=== PATIENT | female | born 1940 | race Caucasian/White ===

== ENCOUNTER 2016-07-15 06:15 | Inpatient (IN) ==
[2016-07-15] MEDS ORDERED: Heparin 1,000 UNITS/500 mL NS 500 ML ONE ×2 (06:45→06:49)
[2016-07-15] MEDS ORDERED: Lidocaine 1% 20 ML MDV ONE (06:48)
[2016-07-15] MEDS ORDERED: *HR* Succinylcholine 200 MG/10 ML VIAL IVP ONE (06:59)
[2016-07-15] MEDS ORDERED: Lidocaine -MPF 2% 2 ML VIAL ONE ×2 (06:59→07:53)
[2016-07-15] MEDS ORDERED: Lidocaine -MPF 4% 5 ML AMPUL ONE ×2 (06:59→11:05)
[2016-07-15] MEDS ORDERED: *HR* Propofol 200 MG/20 ML VIAL IVP ONE (07:00)
[2016-07-15] MEDS ORDERED: *HR* Midazolam HCl 2 MG/2 ML VIAL ONE (07:00)
[2016-07-15] MEDS ORDERED: *HR* FentaNYL (PF) 100 MCG/2 ML VIAL ONE (07:00)
[2016-07-15] MEDS ORDERED: *HR* Remifentanil 2 MG VIAL IVP ONE ×2 (07:04→10:42)
--- NOTE | 2016-07-15 07:06 | Anesthesia Evaluation PreOp ---
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: Seizures (last seizure 4 months ago, not being medically treated), CVA (left residual weakness) Other Medical History: Diabetes Type II, GERD Anesthesia History: No Prior Anesthetic Complications, Past Anesthesia Alcohol Use: none Drug use: none Medications and Allergies Aspirin [Lo-Dose Aspirin EC] 81 mg PO DAILY 02/15/16 [History] Donepezil [Aricept] 5 mg PO HS 02/15/16 [History] Gabapentin [Neurontin] 300 mg PO TID 02/15/16 [History] Insulin DETEMIR [Levemir Flextouch] 35 unit SQ BID 02/15/16 [History] Metoprolol [Lopressor] 50 mg PO BID 02/15/16 [History] Temazepam [Restoril] 15 mg PO HS 02/15/16 [History] Lisinopril-HCTZ 20-12.5 [Prinzide 20-12.5] 1 each PO BID 07/04/16 [History] Nitroglycerin [Nitrostat] 0.4 mg SL DAILY PRN 07/04/16 [History] Allergies Penicillins [PCN] Allergy (Verified 02/15/16 14:12) Hives Sulfa (Sulfonamide Antibiotics) Allergy (Verified 02/15/16 14:12) Hives Bucvpfg-Lmp-Yhr Reductase Inhibitor [Statins] Adverse Reaction (Verified 10:34) Cramping of the Muscles pain meds Allergy (Uncoded 02/15/16 14:12) Hives - Meds/Allergy Pre-op Review Medications Reviewed: Yes Allergies Reviewed: Yes Beta Blockers on Current Med List: Yes If Beta Blockers taken, Date/Time (Last Dose taken): 07/14/2016 at 2100 Anesthesia Results - Labs Laboratory Tests 07/01/16 07/01/16 07/01/16 16:36 16:36 16:36 WBC 7.3 Hgb 10.2 L Hct 34.7 L Plt Count 283 PT 11.1 INR 1.0 APTT 27.3 Sodium 135 L Potassium 3.9 BUN 17 Creatinine 0.93 - Imaging EKG: report reviewed (02/15/2016 SR, 1st degree AV block, possible inferior infarct) Additional studies: 07/10/2016 LVEF >70% perfusion imaging was negative for ischemia or infarct 05/21/2014 Echo Impressions: LVEF 65-70%. Normal left ventricular structure and function. Mild left ventricular diastolic dysfunction with elevated filling pressures. Moderately enlarged left atrial size. Normal right atrial size. RV not well visualized but grossly demonstrates normal function. Mild tricuspid regurgitation. Moderate MAC. RVSP 22 mmHg; no pulmonary hypertension. IVC is normal in size. No evidence for interatrial shunting with saline contrast injection. Anesthesia Exam O2 Sat Height 1.45 m Height 1.45 m Weight 73.936 kg Weight 73.936 kg O2 Sat by Pulse Oximetry 95 Vital Signs Temp Pulse Resp BP Pulse Ox 97.8 F 53 18 130/64 95 07/15/16 06:46 07/15/16 06:46 07/15/16 06:46 07/15/16 06:46 07/15/16 06:46 Blood Glucose* 135 Height: 4'9'' Weight: 163 lbs NPO (# of Hours): 8 Pain Scale: 0 Pain Scale Used: Numeric (1 - 10) - HEENT Pupil (Motor): EOMI Mallampati: II Teeth: Edentulous Denture Type: Upper: Complete, Lower: Complete Oral Opening: Greater than 3 - BOWLING [employer] DESK CLERK LOC: Oriented [employer] DESK CLERK Motor: Normal RUE, Normal RLE, Normal Face, Deficit LUE, Deficit LLE [employer] DESK [employer]ERK Sensory: Normal: RUE, RLE, Face, Deficit: LUE, LLE - Cardiac Rhythm: Regular Murmur: None - Pulmonary Breath Sounds: bilateral Clear Respiratory Effort: Symmetrical Anesthesia Assess/Plan ASA Score: 4 Modified Nawaf Scale for Level of Consciousness: Cooperative, oriented, and tranquil Anesthetic Plan: General, Precautions (Patient understands that she is at increased risk for perioperative complications including myocardial infarct, arrhythmias, CVA, post op vent support/ICU stay, and . Patient wishes to proceed.) Monitoring Plan: Standard Monitors, A-Line Recovery Plan: PACU
[2016-07-15] MEDS ORDERED: EPHEDrine 50 MG/ML VIAL ONE (07:15)
[2016-07-15] MEDS ORDERED: CeFAZolin Pre 2,000 MG/100 ML 2,000 MG/100 ML BAG IVPB ONE (07:21)
--- NOTE | 2016-07-15 07:22 | History & Physical Report ---
Date of Encounter: 07/15/16 Time of Encounter: 07:22 24 Hour HP Update - Instructions Instructions: If the History and Physical is less than 30 days old and was completed prior to A.M. admission and or procedure and has NOT been updated on calendar day of procedure please complete this update prior to performing procedure. - Update Patient reports changes in Medical Condition: No Changes in assessment/condition: No Changes in Medication: No Preop tests/diagnostics Reviewed: Yes Surgery Remains Indicated: Yes Consent for Planned Operative Procedure(s) Verified: Yes - Pre-Operative Checklist Preoperative Checklist Indicated: Yes Prophylactic Antibiotic Ordered: Yes Home Medications Include Beta Moses: Yes Beta Moses Taken Today (Day of Surgery): Yes Beta Moses Taken Yesterday (Day Prior to Surgery): Yes Is VTE Prophylaxis Indicated?: Yes
[2016-07-15] MEDS ORDERED: Ringers Solution, Lactated 1,000 ML IVC SCH ×2 (07:30→09:00)
[2016-07-15] MEDS ORDERED: NiCARdipine 2.5 MG/10 ML Syringe IVPB ONE (08:30)
[2016-07-15] MEDS ORDERED: Ondansetron 4 MG/2 ML VIAL ONE (08:34)
[2016-07-15] MEDS ORDERED: *HR* Heparin 5,000 UNIT/ML VIAL ONE ×2 (08:37→10:56)
[2016-07-15] MEDS ORDERED: *HR* Labetalol 100 MG/20 ML MDV IVP PRN (08:50)
[2016-07-15] MEDS ORDERED: *HR* HYDROmorphone (PF) 1 MG/ML SYRINGE IVP PRN (08:50)
[2016-07-15] MEDS ORDERED: Ondansetron 4 MG/2 ML VIAL IVP ONE (08:50)
[2016-07-15] MEDS ORDERED: *HR* Meperidine 25 MG/ML SYRINGE IVP PRN (08:50)
[2016-07-15] MEDS ORDERED: Naloxone 0.4 MG/ML INJ IVP PRN ×3 (08:50→14:42)
[2016-07-15] MEDS ORDERED: Albuterol 2.5 MG/3 ML NEBULIZER IH ONE (08:50)
--- NOTE | 2016-07-15 08:50 | Anesthesia Procedures ---
Date of Encounter: 07/15/16 Time of Encounter: 08:49 Procedures: Anesthesia - Arterial Line Consent obtained: written consent Time out performed: Yes Supplemental Oxygen via Nasal Cannula (L/min): 4 Local Anesthetic: Lidocaine 1% Amount of Anesthetic used (mls): 0.3 Size (Gauge): 20 Length (inches): 1 3/4 Technique Used: sterile prep, direct puncture technique Post-Procedure: line taped into place, dry sterile dressing placed Patient tolerated procedure: well, no complications Complications: none Site: Radial R
[2016-07-15] MEDS ORDERED: *HR* Morphine 2 MG/ML SYRINGE IVP PRN (11:54)
[2016-07-15] MEDS ORDERED: Acetaminophen 325 MG TABLET PO PRN (11:54)
[2016-07-15] MEDS ORDERED: *HR* HYDROcodone/Acet 5/325 mg TABLET PO PRN (11:54)
--- NOTE | 2016-07-15 12:03 | Operative Note ---
Date of procedure: 07/15/16 Pre-op diagnosis: Recurrent right carotid artery stenosis Post-op diagnosis: same Procedure: Redo right carotid endarterectomy with bovine pericardial patch angioplasty and 8 Maltese shunt. Complications: None Anesthesia: ALONDRA Surgeon: Hugo Martinez Estimated blood loss (cc): 150 Condition: stable Disposition: PACU Procedure in Detail: History Isabel Stallworth is a 75-year-old white female with known carotid artery disease. She is status post a left carotid artery endarterectomy many years ago at an outside hospital. She does undergo a right carotid endarterectomy here approximately 2-1/2 years ago. On follow-up scanning she was found have a critical stenosis with elevated velocities. A repeat gram was obtained which showed a high-grade stenosis and an hourglass type configuration in the area of the previous patch angioplasty suggesting severe intimal hyperplasia. The patient FOR surgical correction of this lesion. Procedure After informed consent was obtained the patient was taken to the operating room. General endotracheal anesthesia was established and an arterial line was placed. The right neck was then sterilely prepped and draped. A timeout protocol was observed. An incision was made over the previous surgical scar. Dissection was then carried down to the carotid sheath. The patient had very dense scarring around the carotid artery leading to a very tedious and meticulous dissection. Ultimately the vessel and the bifurcation of the carotid system was isolated and controlled with vessel loops. The hypoglossal nerve and vagus nerve were identified and preserved. 5000 units of heparin were administered intravenously. After 3 minutes later the vessels were clamped with the internal carotid artery clamped first. Using an 11 blade knife and Dawson scissors the old patch was opened. An 8 Maltese shunt was then inserted atraumatically. Patency of the shunt was confirmed by the use of intraoperative Doppler. Inspecting the vessel the high-grade stenosis was identified and indeed did appear to be intimal hyperplasia. Therefore an endarterectomy was performed of the carotid vessel to remove this intimal hyperplasia. The previous JOSEPH Shield Dacron patch was then excised in total. A bovine pericardial patch was selected and this was sewn into position using 2 6-0 Prolene sutures. Leaving a small space open on the suture line the shunt was clamped divided and removed. The final few sutures were placed. The internal was allowed to backbleed and was reclamped. The external and common were opened and finally the internal was reopened. The patient had no hemodynamic distress with this maneuver. Excellent pulsations and Doppler signals were identified throughout the carotid system. Hemostasis was achieved. A superficial cervical block was half percent Marcaine was performed. Copious irrigation with antibiotic containing solution was performed as well. Wound was then closed in layers using absorbable suture. No drains were placed. There were no intraoperative complications. The patient tolerated the procedure well. The patient awoke from anesthesia without difficulty and was neurologically intact. She was extubated in the operating room and taken to the recovery room in stable condition.
--- NOTE | 2016-07-15 12:45 | Anesthesia Evaluation Post Op ---
Date of Encounter: 07/15/16 Time of Encounter: 12:30 - Vital Signs Vital Signs: Vital Signs/O2 Sat, Most Current Temp Pulse Resp BP Pulse Ox 97.7 F 89 16 131/53 95 07/15/16 12:29 07/15/16 12:29 07/15/16 12:29 07/15/16 12:29 07/15/16 12:29 - Lungs Lungs: Clear Ascult./Percussion - Airway Airway: Non-obstructed - Cardiovascular Regular Rate - Mental Status Mental Status: Asleep with brisk response to light stimulation - Pain Pain Scale: 0 Pain Scale used: Numeric (1 - 10) - Nausea Vomiting Nausea Vomiting: Not Present - Hydration Hydration: NPO, Miner catheter - Discharge PostOp Status: Transfer Patient to floor
[2016-07-15] MEDS ORDERED: Nitroglycerin 0.4 MG TAB.SUBL SL PRN (13:44)
[2016-07-15] MEDS ORDERED: Ondansetron 4 MG/2 ML VIAL IVP PRN (14:42)
[2016-07-15] MEDS: ceFAZolin 2,000 MG in D5% in Water 100 ML IVPB SCH ×2 (15:32→23:36)
[2016-07-15] MEDS: Gabapentin 300 MG CAPSULE PO SCH ×2 (15:32→21:02)
[2016-07-15] MEDS ORDERED: ceFAZolin 2,000 MG in D5% in Water 100 ML IVPB SCH (16:00)
[2016-07-15] MEDS ORDERED: D5% in Water 1,000 ML IV PRN (17:25)
[2016-07-15] MEDS ORDERED: Dextrose Gel 15 GM PO PRN ×2 (17:25)
[2016-07-15] MEDS ORDERED: *HR* Dextrose 50 % in Water (Syg) 50 ML SYRINGE IVP PRN (17:25)
[2016-07-15] MEDS: Ringers Solution, Lactated 1,000 ML IVC SCH (17:37)
[2016-07-15] MEDS: Insulin LISPRO 300 UNITS/3 ML VIAL SQ SCH (17:37)
[2016-07-15] MEDS: INSULIN DEGLUDEC 35 UNIT SQ SCH (20:57)
[2016-07-15] MEDS ORDERED: Insulin LISPRO 300 UNITS/3 ML VIAL SQ SCH (21:00)
[2016-07-15] MEDS ORDERED: Aspirin Enteric Coated 81 MG Tablet PO SCH (21:00)
[2016-07-15] MEDS ORDERED: Temazepam 15 MG CAPSULE PO SCH (21:00)
[2016-07-15] MEDS: Lisinopril-HCTZ 20-12.5mg TABLET PO SCH (21:02)
[2016-07-16 04:33] LABS: Basophils % 0.4 %; Eosinophils # 0.1 K/mcL (0.0-0.6); Hematocrit 23.1 % (35.3-44.9); Hemoglobin 7.2 g/dL (11.5-15.4); Immature Granulocytes % 0.4 % (0-4); Lymphocytes # 0.9 K/mcL (0.6-4.6); Lymphocytes % 15.6 %; Mean Corpuscular HGB Conc 31.2 g/dL (31.6-35.5); Mean Corpuscular Hemoglobin 23.7 pg (28.0-33.3); Monocytes # 0.5 K/mcL (0.0-1.3); Monocytes % 8.5 %; Neutrophils # 4.1 K/mcL (1.6-8.9); Platelet Count 202 K/mcL (140-400); Red Blood Count 3.04 M/mcL (3.82-4.97); Red Cell Distribution Width 15.3 % (11.5-14.5); Segmented Neutrophils % 73.1 %
[2016-07-16 04:43] LABS: BUN/Creatinine Ratio 15 (6-26); Blood Urea Nitrogen 11 mg/dL (7-20); Carbon Dioxide 24 mEq/L (19-29); Chloride 98 mEq/L (98-109); Glucose 126 mg/dL (70-99); Osmolality,Calculated 275 (280-300); Potassium 3.5 mEq/L (3.5-4.5); Sodium 132 mEq/L (136-145); eGFR For African Americans > 60 (> 60); eGFR For Non-African Americans > 60 (> 60)
[2016-07-16] MEDS: Ringers Solution, Lactated 1,000 ML IVC SCH (06:47)
[2016-07-16] MEDS: Insulin LISPRO 300 UNITS/3 ML VIAL SQ SCH ×4 (08:28→17:09)
[2016-07-16] MEDS: ceFAZolin 2,000 MG in D5% in Water 100 ML IVPB SCH (08:58)
[2016-07-16] MEDS: Lisinopril-HCTZ 20-12.5mg TABLET PO SCH (08:59)
[2016-07-16] MEDS: Gabapentin 300 MG CAPSULE PO SCH ×2 (08:59→15:46)
[2016-07-16] MEDS: INSULIN DEGLUDEC 35 UNIT SQ SCH (08:59)
[2016-07-16] MEDS: Metoclopramide 10 MG/2 ML VIAL IVP SCH ×2 (12:25→17:10)
[2016-07-16 15:29] VITALS: BP 118/72
--- NOTE | 2016-07-16 17:08 | Discharge Summary ---
Date of Encounter: 07/16/16 Time of Encounter: 17:06 - Discharge Diagnosis (1) Carotid stenosis, asymptomatic Priority: Primary Status: Acute Comments: Right carotid restenosis in area of previous carotid endarterectomy Qualifiers: Laterality: right Qualified Code(s): I65.21 - Occlusion and stenosis of right carotid artery (2) Diabetes Priority: Secondary Status: Chronic Comments: Patient under stable medical treatment for diabetes though her blood sugars have been irregular Qualifiers: Diabetes mellitus type: type 2 Diabetes mellitus complication status: with circulatory complication Diabetes mellitus complication detail: with other circulatory complications 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 use Qualified Code(s): E11.59 - Type 2 diabetes mellitus with other circulatory complications; 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 - Discharge Medications Home Medications: Aspirin [Lo-Dose Aspirin EC] 81 mg PO HS 02/15/16 [History] Gabapentin [Neurontin] 300 mg PO TID 02/15/16 [History] Metoprolol [Lopressor] 50 mg PO BID 02/15/16 [History] Temazepam [Restoril] 15 mg PO HS 02/15/16 [History] Lisinopril-HCTZ 20-12.5 [Prinzide 20-12.5] 1 each PO BID 07/04/16 [History] Nitroglycerin [Nitrostat] 0.4 mg SL DAILY PRN 07/04/16 [History] Insulin Degludec [Tresiba Flextouch U-100] 35 unit SQ BID 07/15/16 [History] Allergies/Adverse Reactions: Allergies Penicillins [PCN] Allergy (Verified 02/15/16 14:12) Hives Sulfa (Sulfonamide Antibiotics) Allergy (Verified 02/15/16 14:12) Hives Etlpkez-Mpm-Nbw Reductase Inhibitor [Statins] Adverse Reaction (Verified 10:34) Cramping of the Muscles pain meds Allergy (Uncoded 02/15/16 14:12) Hives Procedures/tests Complete & Pending: Procedures Performed prior 72 hours Category Date Time Status ECG 12 lead ECG [ECG] Stat Y 07/16/16 04:26 Completed Date of admission: 07/15/16 12:53 Primary care physician: Hamilton Denney MD Consults: None Procedure(s) Performed: Redo right carotid endarterectomy with bovine pericardial patch angioplasty Discharging clinician: Hugo Martinez Anticipated date of discharge: 07/16/16 - Patient Status Disposition: Home, Self-Care Condition: Good Functional capacity at discharge: independent ambulation Overall status at discharge: patient is progressing back to baseline - Discharge Instructions Follow Up With: ALISIA SEBASTIAN [Other] - 07/18/16 11:45 am Hamilton Denney MD [Primary Care Provider] - Hugo Martinez MD [Partnered Physician] - 08/06/16 1:30 pm Additional Instructions: Keep right neck incision dry for total of 5 days following surgery Use ice pack on right neck at home for 2 days Use incentive spirometer at home for 2 weeks Resume usual home medications - Diet and Activity Activity: increase activity as tolerated Diet: diabetic diet - Hospital Course Hospital course: Ms. Stallworth is a 75 year old female With recurrent right internal carotid artery stenosis. This was identified and duplex scan. She went on to have an intervention to confirm this. She was now admitted for redo right carotid endarterectomy. This was performed yesterday under general endotracheal anesthesia. The patient had no. Procedural complications. She tolerated the procedure well. She had no periprocedural neurologic deficits. The patient was hemodynamically stable postoperatively. She was able to ambulate in the hallways. She was felt fit for discharge on the afternoon of postoperative day #1. Instructions in regards to wound care and medications and diet were reviewed with the patient prior to discharge. - Time Spent with Patient Total time spent providing and/or coordinating discharge services: Exam Vital Signs, Last 4 Hours Temp Pulse Resp BP Pulse Ox 07/16/16 15:48 88 07/16/16 15:28 98.5 F 81 18 118/72 91 L General: Present: Conversant, No Apparent Distress HEENT: Present: Atraumatic, Normocephaly, Trachea midline Neck: Absent: JVD Cardiac: Present: Reg Rate and Rhythm Lungs: Present: Normal Breath Sounds Neuro: Present: Alert and responsive, No focal deficits noted, Cranial nerves grossly intact Abdomen: Present: Soft, Non-tender Vascular: Present: Normal capillary refill, Surgical incisions (Right neck incision is clean and dry) - VTE Documentation of Mechanical Device: Intermittent pneumatic compression device
--- NOTE | 2016-07-17 19:39 | Electrocardiograph Report ---
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
== END 2016-07-16 18:03 | disposition home or self-care (01) | DRG 38 ==
LOC: SAMDAY 06:15 → 2NNU 12:53
PROVIDERS: ADMIT Surgery Vascular Surgery; ATTEND Surgery Vascular Surgery

== ENCOUNTER 2019-03-14 22:58 | Inpatient (IN) ==
[2019-03-15] MEDS ORDERED: *HR* Heparin 5,000 UNIT/ML VIAL IVP PRN ×2 (01:52)
[2019-03-15 01:58] LABS: Immature Granulocytes % 0.2 % (0-4)
[2019-03-15 02:00] LABS: Basophils % 0.2 %; Hematocrit 31.7 % (35.3-44.9); Hemoglobin 9.3 g/dL (11.5-15.4); Lymphocytes # 0.1 K/mcL (0.6-4.6); Lymphocytes % 2.9 %; Mean Corpuscular HGB Conc 29.3 g/dL (31.6-35.5); Mean Corpuscular Hemoglobin 22.3 pg (28.0-33.3); Mean Platelet Volume 9.9 fL (9.4-12.4); Monocytes % 0.7 %; Platelet Count 251 K/mcL (140-400); Red Blood Count 4.17 M/mcL (3.82-4.97); Red Cell Distribution Width 16.9 % (11.5-14.5); White Blood Count 4.4 K/mcL (4.3-11.1)
[2019-03-15] MEDS ORDERED: Heparin 25,000 UNIT/250 ML D5W 25,000 UNIT/250 ML IV.SOLN IVC SCH (02:00)
[2019-03-15 02:01] LABS: Neutrophils # 4.2 K/mcL (1.6-8.9)
[2019-03-15 02:08] LABS: Chol/HDL Ratio 3.2 (0-4.9)
[2019-03-15 02:17] LABS: Albumin 3.2 g/dL (3.5-5.7); Albumin/Globulin Ratio 1.2 (1.1-2.2); Bilirubin,Total 0.7 mg/dL (0.3-1.0); Calcium 8.4 mg/dL (8.6-10.3); Globulin 2.7 g/dL (2.4-3.5); Potassium 3.6 mEq/L (3.5-5.1); Total Protein 5.9 g/dL (6.4-8.9); Troponin I 0.2 ng/mL (< 0.04)
[2019-03-15 02:24] LABS: Platelet Estimate Normal (Normal)
[2019-03-15] MEDS ORDERED: Ipratropium/Albuterol Neb 3 ML IH PRN (02:28)
[2019-03-15 02:58] LABS: INR 1.4; Prothrombin Time 15.4 Seconds (9.4-12.1)
[2019-03-15 03:04] LABS: Heparin anti-factor XA UFH 1.15 IU/mL (0.30-0.70)
[2019-03-15] MEDS: 0.9 % Sodium Chloride 1,000 ML IVC SCH ×2 (03:43→17:03)
[2019-03-15 07:22] LABS: Adenovirus Not Detected (Not Detect); Bordetella Pertussis Not Detected (Not Detect); Chlamydophila pneumoniae Not Detected (Not Detect); Coronavirus 229E Not Detected (Not Detect); Coronavirus HKU1 Not Detected (Not Detect); Coronavirus NL63 Not Detected (Not Detect); Coronavirus OC43 Not Detected (Not Detect); Human Metapneumovirus Not Detected (Not Detect); Human Rhinovirus/Enterovirus Not Detected (Not Detect); Influenza A Subtype 2009 H1 Not Detected (Not Detect); Influenza A Untypeable Not Detected (Not Detect); Influenza B Not Detected (Not Detect); Mycoplasma pneumoniae Not Detected (Not Detect); Parainfluenza Virus 1 Not Detected (Not Detect); Parainfluenza Virus 2 Not Detected (Not Detect); Parainfluenza Virus 3 Not Detected (Not Detect); Parainfluenza Virus 4 Not Detected (Not Detect); Respiratory Syncytial Virus Not Detected (Not Detect)
[2019-03-15] MEDS ORDERED: Lisinopril-HCTZ 20-12.5mg TABLET PO SCH (09:00)
[2019-03-15] MEDS: cefTRIAXone 2,000 MG in Water for inj. (sterile) 20 ML IVPB SCH (10:01)
[2019-03-15 10:44] LABS: Bilirubin,Urine Negative (Negative); Blood,Urine Large (Negative); Clarity,Urine Cloudy (Clear); Color,Urine Dark Yellow (Yellow); Glucose,Urine (UA) Normal (Normal); Ketones,Urine Negative (Negative); Leukocyte Esterase,Urine Large (Negative); Nitrite,Urine Positive (Negative); Protein,Urine 30 mg/dL (Neg-Trace); Specific Gravity,Urine > 1.030 (1.010-1.025); Urobilinogen,Urine Normal (Normal)
[2019-03-15 10:47] LABS: Bacteria,Urine None Seen per hpf (None-Few); Hyaline Casts,Urine None Seen per lpf (None-Few); Squamous Epithelial Cell,Urine Many per lpf (None-Few); WBC,Urine TNTC per hpf (0-3)
[2019-03-15 11:18] LABS: Renal Epithelial Cells,Urine Few per hpf (None-Few); Transitional Epi Cells,Urine Few per hpf (None-Few)
[2019-03-15 11:19] LABS: RBC,Urine 30-50 per hpf (0-3)
[2019-03-15] MEDS: MetroNIDAZOLE 500 MG/100 ML 500 MG/100 ML BAG IVPB SCH (16:16)
[2019-03-15] MEDS: Insulin LISPRO 300 UNITS/3 ML VIAL SQ SCH ×2 (18:08→23:14)
[2019-03-15] MEDS: Nitroglycerin 0.4 MG TAB.SUBL SL PRN ×2 (23:12→23:17)
[2019-03-15] MEDS: Aspirin Enteric Coated 81 MG Tablet PO SCH (23:13)
[2019-03-15] MEDS ORDERED: Melatonin 3 MG TABLET PO ONE (23:48)
[2019-03-16 01:27] LABS: Mean Corpuscular Hemoglobin 22.5 pg (28.0-33.3)
[2019-03-16 01:28] LABS: Hematocrit 29.6 % (35.3-44.9); Hemoglobin 8.6 g/dL (11.5-15.4); Mean Corpuscular HGB Conc 29.1 g/dL (31.6-35.5); Mean Corpuscular Volume 77.3 fL (83.0-100.0); Mean Platelet Volume 9.8 fL (9.4-12.4); Platelet Count 285 K/mcL (140-400); Red Blood Count 3.83 M/mcL (3.82-4.97); Red Cell Distribution Width 17.5 % (11.5-14.5); White Blood Count 29.3 K/mcL (4.3-11.1)
[2019-03-16] MEDS: MetroNIDAZOLE 500 MG/100 ML 500 MG/100 ML BAG IVPB SCH ×4 (01:28→23:32)
[2019-03-16 01:46] LABS: Calcium 8.4 mg/dL (8.6-10.3); Magnesium 1.6 mg/dL (1.6-2.6); Phosphorous 3.3 mg/dL (2.7-4.5); Potassium 3.7 mEq/L (3.5-5.1)
[2019-03-16 02:10] LABS: Lymphocytes # 2.3 K/mcL (0.6-4.6); Monocytes # 0.6 K/mcL (0.0-1.3); Neutrophils # 25.8 K/mcL (1.6-8.9)
[2019-03-16] MEDS: Insulin LISPRO 300 UNITS/3 ML VIAL SQ SCH ×4 (07:51→20:12)
[2019-03-16] MEDS: cefTRIAXone 2,000 MG in Water for inj. (sterile) 20 ML IVPB SCH (07:58)
[2019-03-16] MEDS: 0.9 % Sodium Chloride 1,000 ML IVC SCH ×2 (08:10→23:31)
[2019-03-16 14:31] LABS: Hematocrit 31.4 % (35.3-44.9); Mean Corpuscular HGB Conc 28.7 g/dL (31.6-35.5); Mean Platelet Volume 10.1 fL (9.4-12.4)
[2019-03-16 14:33] LABS: Mean Corpuscular Hemoglobin 22.4 pg (28.0-33.3); Mean Corpuscular Volume 78.3 fL (83.0-100.0); Platelet Count 268 K/mcL (140-400); Red Blood Count 4.01 M/mcL (3.82-4.97); Red Cell Distribution Width 17.4 % (11.5-14.5); White Blood Count 23.8 K/mcL (4.3-11.1)
[2019-03-16] MEDS: *HR* Heparin 5,000 UNIT/ML VIAL SQ SCH (17:05)
[2019-03-16] MEDS: Aspirin Enteric Coated 81 MG Tablet PO SCH ×2 (19:54→19:56)
[2019-03-16] MEDS ORDERED: Melatonin 3 MG TABLET PO PRN (20:04)
[2019-03-16] MEDS ORDERED: Ondansetron 4 MG/2 ML VIAL IVP ONE (20:06)
[2019-03-17 02:02] LABS: Basophils % 0.4 %
[2019-03-17 02:03] LABS: Basophils # 0.1 K/mcL (0.0-0.2); Eosinophils % 0.2 %; Hematocrit 30.4 % (35.3-44.9); Hemoglobin 8.7 g/dL (11.5-15.4); Immature Granulocytes % 1.1 % (0-4); Lymphocytes # 0.9 K/mcL (0.6-4.6); Lymphocytes % 4.6 %; Mean Corpuscular HGB Conc 28.6 g/dL (31.6-35.5); Mean Corpuscular Hemoglobin 22.2 pg (28.0-33.3); Mean Corpuscular Volume 77.6 fL (83.0-100.0); Monocytes % 5.5 %; Neutrophils # 16.4 K/mcL (1.6-8.9); Platelet Count 273 K/mcL (140-400); Red Blood Count 3.92 M/mcL (3.82-4.97); Red Cell Distribution Width 17.4 % (11.5-14.5); Segmented Neutrophils % 88.2 %; White Blood Count 18.6 K/mcL (4.3-11.1)
[2019-03-17 02:22] LABS: BUN/Creatinine Ratio 32 (6-26); Blood Urea Nitrogen 26 mg/dL (8-23); Calcium 8.8 mg/dL (8.6-10.3); Carbon Dioxide 21 mEq/L (23-29); Chloride 105 mEq/L (98-107); Glucose 127 mg/dL (70-105); Magnesium 1.7 mg/dL (1.6-2.6); Osmolality,Calculated 288 (280-300); Phosphorous 2.5 mg/dL (2.7-4.5); Potassium 3.8 mEq/L (3.5-5.1); Sodium 136 mEq/L (136-145); eGFR For African Americans > 60 (> 60); eGFR For Non-African Americans > 60 (> 60)
[2019-03-17 02:41] LABS: Hypochromasia Present (Not Present); Platelet Estimate Normal (Normal)
[2019-03-17] MEDS: *HR* Heparin 5,000 UNIT/ML VIAL SQ SCH (04:50)
[2019-03-17] MEDS: Insulin LISPRO 300 UNITS/3 ML VIAL SQ SCH ×2 (08:02→12:14)
[2019-03-17] MEDS: cefTRIAXone 2,000 MG in Water for inj. (sterile) 20 ML IVPB SCH (08:38)
[2019-03-17] MEDS: MetroNIDAZOLE 500 MG/100 ML 500 MG/100 ML BAG IVPB SCH (08:39)
[2019-03-17 11:47] VITALS: BP 146/77
[2019-03-17] MEDS ORDERED: Temazepam 15 MG CAPSULE PO SCH (21:00)
== END 2019-03-17 16:29 | disposition home or self-care (01) | DRG 871 ==
LOC: 2NENU → SUATTDRO 03-15 00:30
PROVIDERS: ADMIT Internal Medicine; ATTEND Internal Medicine

== ENCOUNTER 2019-12-20 13:55 | Observation (INO) ==
[2019-12-20] MEDS ORDERED: *HR* OxyCODONE Immed Rel 5 MG TABLET PO PRN (15:14)
[2019-12-20] MEDS ORDERED: Ondansetron 4 MG/2 ML VIAL IVP PRN (15:14)
[2019-12-20] MEDS ORDERED: Naloxone 0.4 MG/ML INJ IVP PRN (15:14)
[2019-12-20] MEDS ORDERED: Acetaminophen 325 MG TABLET PO PRN (15:14)
[2019-12-20] MEDS ORDERED: Perflutren Lipid Microsphere 1.3 ML in 0.9 % Sodium Chloride 8.7 ML IVP PRN (15:15)
[2019-12-20] MEDS ORDERED: Nitroglycerin 0.4 MG TAB.SUBL SL PRN (15:42)
[2019-12-20] MEDS ORDERED: *HR* Heparin 5,000 UNIT/ML VIAL IVP ONE (16:23)
[2019-12-20] MEDS ORDERED: *HR* Heparin 5,000 UNIT/ML VIAL IVP PRN ×2 (16:23)
[2019-12-20] MEDS ORDERED: *HR* Dextrose 50 % in Water (Vial) 50 ML VIAL IVP PRN (16:41)
[2019-12-20] MEDS ORDERED: D5% in Water 1,000 ML IVC PRN (16:41)
[2019-12-20] MEDS ORDERED: Dextrose Gel 15 GM/37.5 ML TUBE PO PRN ×2 (16:41)
[2019-12-20 19:22] LABS: Heparin anti-factor XA UFH 0.07 IU/mL (0.30-0.70); Prothrombin Time 11.2 Seconds (9.4-12.1)
[2019-12-20 19:26] LABS: Hematocrit 32.8 % (35.3-44.9); Hemoglobin 9.7 g/dL (11.5-15.4); Mean Corpuscular HGB Conc 29.6 g/dL (31.6-35.5); Mean Corpuscular Hemoglobin 22.9 pg (28.0-33.3); Mean Corpuscular Volume 77.5 fL (83.0-100.0); Mean Platelet Volume 9.7 fL (9.4-12.4); Platelet Count 282 K/mcL (140-400); Red Blood Count 4.23 M/mcL (3.82-4.97); Red Cell Distribution Width 16.1 % (11.5-14.5)
[2019-12-20] MEDS: Heparin 25,000 UNIT/250 ML D5W 25,000 UNIT/250 ML IV.SOLN IVC SCH (20:16)
[2019-12-21 03:41] LABS: Immature Granulocytes % 0.3 % (0-4)
[2019-12-21 03:42] LABS: Basophils # 0.1 K/mcL (0.0-0.2); Basophils % 0.8 %; Eosinophils # 0.1 K/mcL (0.0-0.6); Eosinophils % 1.7 %; Hematocrit 32.6 % (35.3-44.9); Hemoglobin 9.6 g/dL (11.5-15.4); Lymphocytes # 1.5 K/mcL (0.6-4.6); Lymphocytes % 20.4 %; Mean Corpuscular HGB Conc 29.4 g/dL (31.6-35.5); Mean Corpuscular Hemoglobin 23.1 pg (28.0-33.3); Mean Corpuscular Volume 78.4 fL (83.0-100.0); Mean Platelet Volume 9.8 fL (9.4-12.4); Monocytes # 0.5 K/mcL (0.0-1.3); Monocytes % 7.4 %; Platelet Count 260 K/mcL (140-400); Red Blood Count 4.16 M/mcL (3.82-4.97); Red Cell Distribution Width 16.2 % (11.5-14.5); Segmented Neutrophils % 69.4 %; White Blood Count 7.2 K/mcL (4.3-11.1)
[2019-12-21 03:57] LABS: BUN/Creatinine Ratio 18 (6-26); Blood Urea Nitrogen 16 mg/dL (8-23); Calcium 9.3 mg/dL (8.6-10.3); Carbon Dioxide 26 mEq/L (23-29); Chloride 101 mEq/L (98-107); Glucose 86 mg/dL (70-105); Osmolality,Calculated 282 (280-300); Potassium 3.5 mEq/L (3.5-5.1); Sodium 136 mEq/L (136-145); eGFR For African Americans > 60 (> 60); eGFR For Non-African Americans 60 (> 60)
[2019-12-21] MEDS ORDERED: Regadenoson 0.4 MG/5 ML SYRINGE IVP ONE (07:01)
[2019-12-21] MEDS: Insulin LISPRO 300 UNITS/3 ML VIAL SQ SCH ×3 (08:33→17:34)
[2019-12-21] MEDS: Isosorbide MONOnitrate (24 HR) 30 MG TAB.ER.24H PO SCH (10:30)
[2019-12-21] MEDS: Heparin 25,000 UNIT/250 ML D5W 25,000 UNIT/250 ML IV.SOLN IVC SCH ×2 (17:34→22:38)
[2019-12-21] MEDS ORDERED: *HR* LORazepam 0.5 MG TABLET PO SCH (21:00)
[2019-12-21] MEDS ORDERED: Insulin DETEMIR 100 UNIT/ML X5UNITS SQ SCH (21:00)
[2019-12-22 00:39] LABS: Hemoglobin 9.2 g/dL (11.5-15.4)
[2019-12-22 00:41] LABS: Basophils # 0.1 K/mcL (0.0-0.2); Basophils % 0.8 %; Eosinophils # 0.1 K/mcL (0.0-0.6); Eosinophils % 2.2 %; Hematocrit 31.4 % (35.3-44.9); Immature Granulocytes % 0.2 % (0-4); Lymphocytes # 1.6 K/mcL (0.6-4.6); Lymphocytes % 26.8 %; Mean Corpuscular HGB Conc 29.3 g/dL (31.6-35.5); Mean Corpuscular Hemoglobin 22.9 pg (28.0-33.3); Mean Corpuscular Volume 78.3 fL (83.0-100.0); Mean Platelet Volume 9.5 fL (9.4-12.4); Monocytes # 0.6 K/mcL (0.0-1.3); Monocytes % 9.7 %; Neutrophils # 3.6 K/mcL (1.6-8.9); Platelet Count 261 K/mcL (140-400); Red Blood Count 4.01 M/mcL (3.82-4.97); Red Cell Distribution Width 16.1 % (11.5-14.5); Segmented Neutrophils % 60.3 %; White Blood Count 5.9 K/mcL (4.3-11.1)
[2019-12-22 00:55] LABS: BUN/Creatinine Ratio 20 (6-26); Blood Urea Nitrogen 20 mg/dL (8-23); Calcium 9.3 mg/dL (8.6-10.3); Carbon Dioxide 27 mEq/L (23-29); Chloride 100 mEq/L (98-107); Glucose 126 mg/dL (70-105); Osmolality,Calculated 284 (280-300); Potassium 4.1 mEq/L (3.5-5.1); Sodium 135 mEq/L (136-145); eGFR For African Americans > 60 (> 60); eGFR For Non-African Americans 54 (> 60)
[2019-12-22 07:21] VITALS: BP 123/73
[2019-12-22] MEDS: Isosorbide MONOnitrate (24 HR) 30 MG TAB.ER.24H PO SCH (07:41)
[2019-12-22] MEDS: Insulin LISPRO 300 UNITS/3 ML VIAL SQ SCH (07:41)
[2019-12-22] MEDS ORDERED: Aspirin Enteric Coated 81 MG Tablet PO SCH (09:00)
== END 2019-12-22 12:25 | disposition home or self-care (01) ==
LOC: 3ANU → SUATTDRO 15:14
PROVIDERS: ADMIT Internal Medicine; ATTEND Internal Medicine

== ENCOUNTER 2020-09-25 19:39 | Observation (INO) ==
[2020-09-25 21:33] LABS: Basophils % 0.6 %; Eosinophils # 0.1 K/mcL (0.0-0.6); Eosinophils % 0.8 %; Hematocrit 34.2 % (35.3-44.9); Hemoglobin 10.2 g/dL (11.5-15.4); Immature Granulocytes % 0.2 % (0-4); Lymphocytes # 1.3 K/mcL (0.6-4.6); Lymphocytes % 20.4 %; Mean Corpuscular HGB Conc 29.8 g/dL (31.6-35.5); Mean Corpuscular Hemoglobin 23.4 pg (28.0-33.3); Mean Corpuscular Volume 78.6 fL (83.0-100.0); Mean Platelet Volume 10.1 fL (9.4-12.4); Monocytes # 0.5 K/mcL (0.0-1.3); Monocytes % 6.9 %; Neutrophils # 4.7 K/mcL (1.6-8.9); Platelet Count 228 K/mcL (140-400); Red Blood Count 4.35 M/mcL (3.82-4.97); Red Cell Distribution Width 14.8 % (11.5-14.5); Segmented Neutrophils % 71.1 %; White Blood Count 6.5 K/mcL (4.3-11.1)
[2020-09-25 21:55] LABS: BUN/Creatinine Ratio 17 (6-26); Blood Urea Nitrogen 14 mg/dL (8-23); Calcium 9.6 mg/dL (8.6-10.3); Carbon Dioxide 29 mEq/L (23-29); Chloride 101 mEq/L (98-107); Glucose 112 mg/dL (70-105); Osmolality,Calculated 285 (280-300); Potassium 4.1 mEq/L (3.5-5.1); Sodium 137 mEq/L (136-145); Troponin I < 0.03 ng/mL (< 0.04); eGFR For African Americans > 60 (> 60); eGFR For Non-African Americans > 60 (> 60)
[2020-09-25] MEDS ORDERED: Isovue-370 500 ML BOTTLE IVP ONE (22:09)
[2020-09-25] MEDS: Nitroglycerin 0.4 MG TAB.SUBL SL PRN ×2 (22:22→22:48)
[2020-09-26] MEDS ORDERED: Ondansetron 4 MG/2 ML VIAL IVP PRN (03:28)
[2020-09-26] MEDS ORDERED: Naloxone 0.4 MG/ML INJ IVP PRN (03:28)
[2020-09-26] MEDS ORDERED: D5% in Water 1,000 ML IVC PRN (04:45)
[2020-09-26] MEDS ORDERED: *HR* Dextrose 50 % in Water (Vial) 50 ML VIAL IVP PRN (04:45)
[2020-09-26] MEDS ORDERED: Dextrose Gel 15 GM/37.5 ML TUBE PO PRN ×2 (04:45)
[2020-09-26 05:12] LABS: Basophils # 0.1 K/mcL (0.0-0.2); Basophils % 0.7 %; Eosinophils % 0.4 %; Hematocrit 35.4 % (35.3-44.9); Hemoglobin 10.4 g/dL (11.5-15.4); Immature Granulocytes % 0.3 % (0-4); Lymphocytes % 14.7 %; Mean Corpuscular HGB Conc 29.4 g/dL (31.6-35.5); Mean Corpuscular Volume 78.1 fL (83.0-100.0); Mean Platelet Volume 10.1 fL (9.4-12.4); Monocytes # 0.5 K/mcL (0.0-1.3); Monocytes % 7.9 %; Neutrophils # 5.1 K/mcL (1.6-8.9); Platelet Count 228 K/mcL (140-400); Red Blood Count 4.53 M/mcL (3.82-4.97); Red Cell Distribution Width 15.1 % (11.5-14.5); White Blood Count 6.7 K/mcL (4.3-11.1)
[2020-09-26 05:20] LABS: Prothrombin Time 12.1 Seconds (9.4-12.1)
[2020-09-26 05:32] LABS: Alanine Aminotransferase 18 Units/L (7-52); Albumin 3.8 g/dL (3.5-5.7); Albumin/Globulin Ratio 1.5 (1.1-2.2); Alkaline Phosphatase 63 Units/L (34-104); Aspartate Amino Transferase 31 Units/L (13-39); BUN/Creatinine Ratio 14 (6-26); Bilirubin,Total 0.3 mg/dL (0.3-1.0); Blood Urea Nitrogen 11 mg/dL (8-23); Calcium 9.4 mg/dL (8.6-10.3); Carbon Dioxide 28 mEq/L (23-29); Chloride 100 mEq/L (98-107); Chol/HDL Ratio 3.7 (0-4.9); Cholesterol 157 mg/dL (< 200); Globulin 2.6 g/dL (2.4-3.5); Glucose 165 mg/dL (70-105); HDL Cholesterol 43 mg/dL (40-59); LDL Cholesterol,Calculated 94 mg/dL (< 100); Magnesium 1.8 mg/dL (1.6-2.6); Osmolality,Calculated 285 (280-300); Phosphorous 3.8 mg/dL (2.7-4.5); Potassium 3.9 mEq/L (3.5-5.1); Sodium 136 mEq/L (136-145); Total Protein 6.4 g/dL (6.4-8.9); Triglycerides 101 mg/dL (< 150); Troponin I 0.06 ng/mL (< 0.04); eGFR For African Americans > 60 (> 60); eGFR For Non-African Americans > 60 (> 60)
[2020-09-26] MEDS ORDERED: Perflutren Lipid Microsphere 1.3 ML in 0.9 % Sodium Chloride 8.7 ML IVP PRN (05:55)
[2020-09-26] MEDS ORDERED: *HR* Heparin 5,000 UNIT/ML VIAL SQ SCH (06:00)
[2020-09-26] MEDS: Insulin LISPRO 300 UNITS/3 ML VIAL SUBQ SCH ×3 (06:07→18:28)
[2020-09-26 11:10] LABS: Estimated Average Glucose 186 mg/dl; Hemoglobin A1C 8.1 %
[2020-09-26] MEDS ORDERED: *HR* Heparin 5,000 UNIT/ML VIAL IVP PRN ×2 (11:48)
[2020-09-26] MEDS ORDERED: *HR* Heparin 5,000 UNIT/ML VIAL IVP ONE (11:48)
[2020-09-26] MEDS ORDERED: Isosorbide MONOnitrate (24 HR) 30 MG TAB.ER.24H PO SCH (12:00)
[2020-09-26] MEDS: Heparin 25,000UNIT/250ML 1/2NS 25,000 UNIT/250 ML IV.SOLN IVC SCH (13:17)
[2020-09-26] MEDS: Aspirin Enteric Coated 81 MG Tablet PO SCH (13:20)
[2020-09-26] MEDS ORDERED: Isosorbide MONOnitrate (24 HR) 30 MG TAB.ER.24H PO ONE (13:41)
[2020-09-26] MEDS: Melatonin 3 MG TABLET PO PRN (21:06)
[2020-09-26] MEDS: *HR* LORazepam 1 MG TABLET PO SCH (21:06)
[2020-09-27 05:18] LABS: Basophils # 0.1 K/mcL (0.0-0.2); Basophils % 0.8 %; Eosinophils # 0.1 K/mcL (0.0-0.6); Eosinophils % 1.6 %; Hematocrit 32.6 % (35.3-44.9); Hemoglobin 9.6 g/dL (11.5-15.4); Immature Granulocytes % 0.3 % (0-4); Lymphocytes # 1.2 K/mcL (0.6-4.6); Lymphocytes % 19.5 %; Mean Corpuscular HGB Conc 29.4 g/dL (31.6-35.5); Mean Platelet Volume 10.2 fL (9.4-12.4); Monocytes # 0.5 K/mcL (0.0-1.3); Monocytes % 8.1 %; Neutrophils # 4.3 K/mcL (1.6-8.9); Platelet Count 228 K/mcL (140-400); Red Blood Count 4.18 M/mcL (3.82-4.97); Red Cell Distribution Width 15.1 % (11.5-14.5); Segmented Neutrophils % 69.7 %; White Blood Count 6.2 K/mcL (4.3-11.1)
[2020-09-27 05:31] LABS: BUN/Creatinine Ratio 15 (6-26); Blood Urea Nitrogen 12 mg/dL (8-23); Calcium 9.6 mg/dL (8.6-10.3); Carbon Dioxide 30 mEq/L (23-29); Chloride 100 mEq/L (98-107); Glucose 129 mg/dL (70-105); Magnesium 1.7 mg/dL (1.6-2.6); Osmolality,Calculated 281 (280-300); Potassium 4.1 mEq/L (3.5-5.1); Sodium 135 mEq/L (136-145); eGFR For African Americans > 60 (> 60); eGFR For Non-African Americans > 60 (> 60)
[2020-09-27] MEDS: Insulin LISPRO 300 UNITS/3 ML VIAL SUBQ SCH ×3 (08:30→16:01)
[2020-09-27] MEDS ORDERED: *HR* LORazepam 0.5 MG TABLET PO ONE (09:44)
[2020-09-27] MEDS: Isosorbide MONOnitrate (24 HR) 60 MG TAB.ER.24H PO SCH (10:01)
[2020-09-27] MEDS: Aspirin Enteric Coated 81 MG Tablet PO SCH (10:01)
[2020-09-27 11:14] LABS: Hematocrit 35.5 % (35.3-44.9); Hemoglobin 10.7 g/dL (11.5-15.4)
[2020-09-27] MEDS: amLODIPine 5 MG TABLET PO SCH (12:35)
[2020-09-27] MEDS: Heparin 25,000UNIT/250ML 1/2NS 25,000 UNIT/250 ML IV.SOLN IVC SCH (16:46)
[2020-09-27] MEDS: Melatonin 3 MG TABLET PO PRN (19:39)
[2020-09-27] MEDS: *HR* LORazepam 1 MG TABLET PO SCH (19:40)
[2020-09-27] MEDS ORDERED: Insulin LISPRO 300 UNITS/3 ML VIAL SUBQ SCH (21:00)
[2020-09-28 02:04] LABS: Basophils # 0.1 K/mcL (0.0-0.2); Basophils % 0.9 %; Eosinophils # 0.2 K/mcL (0.0-0.6); Eosinophils % 2.1 %; Hematocrit 35.3 % (35.3-44.9); Hemoglobin 10.5 g/dL (11.5-15.4); Immature Granulocytes % 0.3 % (0-4); Lymphocytes # 1.6 K/mcL (0.6-4.6); Lymphocytes % 20.2 %; Mean Corpuscular HGB Conc 29.7 g/dL (31.6-35.5); Mean Corpuscular Hemoglobin 23.1 pg (28.0-33.3); Mean Corpuscular Volume 77.8 fL (83.0-100.0); Mean Platelet Volume 10.3 fL (9.4-12.4); Monocytes # 0.7 K/mcL (0.0-1.3); Monocytes % 9.4 %; Neutrophils # 5.2 K/mcL (1.6-8.9); Platelet Count 288 K/mcL (140-400); Red Blood Count 4.54 M/mcL (3.82-4.97); Red Cell Distribution Width 15.1 % (11.5-14.5); Segmented Neutrophils % 67.1 %; White Blood Count 7.8 K/mcL (4.3-11.1)
[2020-09-28 02:28] LABS: BUN/Creatinine Ratio 17 (6-26); Blood Urea Nitrogen 15 mg/dL (8-23); Carbon Dioxide 26 mEq/L (23-29); Chloride 97 mEq/L (98-107); Glucose 178 mg/dL (70-105); Magnesium 1.6 mg/dL (1.6-2.6); Osmolality,Calculated 279 (280-300); Sodium 132 mEq/L (136-145); eGFR For African Americans > 60 (> 60); eGFR For Non-African Americans > 60 (> 60)
[2020-09-28 03:08] VITALS: BP 147/51
[2020-09-28] MEDS: Heparin 25,000UNIT/250ML 1/2NS 25,000 UNIT/250 ML IV.SOLN IVC SCH (04:32)
[2020-09-28] MEDS: Isosorbide MONOnitrate (24 HR) 60 MG TAB.ER.24H PO SCH (08:00)
[2020-09-28] MEDS: Aspirin Enteric Coated 81 MG Tablet PO SCH (08:00)
[2020-09-28] MEDS: amLODIPine 5 MG TABLET PO SCH (08:00)
[2020-09-28] MEDS: Insulin LISPRO 300 UNITS/3 ML VIAL SUBQ SCH (08:01)
== END 2020-09-28 11:49 | disposition home or self-care (01) ==
LOC: EMEROOARM 19:39 → CDU 19:39 → SUATTDRO 09-26 02:32 → CDU 09-26 03:28 → 3BNU 09-27 16:21
PROVIDERS: ADMIT Family Medicine; ATTEND Registered Nurse